=== PATIENT | female | born 1990 | race Caucasian/White ===

== ENCOUNTER 2017-03-12 17:50 | Emergency (ER) | payer OTHER ==
[~2017-03-12] VITALS: Ht 152.4 cm; Wt 97.8 kg
[~2017-03-12 17:50] MED LIST: COLACE100 MG PO; Feosol PO; Lortab,Vicodin Elixi PO; NOHOMEMEDS
[2017-03-12 18:41] LABS: HEMATOCRIT 39.1 % (36.0-46.0); MCHC 34.3 G/DL (30.0-36.0); MCV 90.5 FL (83-99); MEAN PLAT.VOLUME 10.2 uM^3 (9.5-12.4); PLATELET COUNT 234 K/uL (156-360); RBC DIS.WIDTH-CV 11.8 % (11.8-14.6); RBC DIS.WIDTH-SD 39.1 % (39-53); RED BLOOD COUNT 4.32 M/uL (3.80-5.20); WHITE BLOOD COUNT 8.4 K/uL (4.1-10.2)
[2017-03-12 18:48] LABS: CHLORIDE 106 mEq/L (99-109); POTASSIUM 3.8 mEq/L (3.7-5.4); SODIUM 138 mEq/L (136-147)
[2017-03-12 18:51] LABS: GLUCOSE 96 mg/dL (70-99)
[2017-03-12 18:52] LABS: ANION GAP 7 MEQ/L (2-14)
[2017-03-12 18:53] LABS: TOTAL BILIRUBIN 0.3 mg/dL (0.0-1.0)
[2017-03-12 18:54] LABS: ALKALINE PHOSPHATASE 55 IU/L (3-129); GFR ESTIMATE (CALCULATED) > 59 mL/min/
[2017-03-12 18:55] LABS: UREA NITROGEN (BUN) 12 mg/dL (9-23)
[2017-03-12 19:05] LABS: QUANTITATIVE HCG < 4.0 MIU/ML
[2017-03-12 19:21] LABS: LIPASE 24 U/L (1.0-51.0)
[2017-03-12 20:37] LABS: ADD MIUA? YES; BILIRUBIN NEGATIVE; BLOOD NEGATIVE; COLOR YELLOW ((YELLOW)); GLUCOSE (STRIP) NEGATIVE; KETONES NEGATIVE; LEUKOCYTES NEGATIVE; NITRITE NEGATIVE; PROTEIN (STRIP) NEGATIVE; SPECIFIC GRAVITY 1.021 (1.000-1.030); UROBILINOGEN 0.2 MG/DL (0.2-1.0)
[2017-03-12 21:13] VITALS: BP 125/88
[2017-03-12 21:56] LABS: BACTERIA RARE /HPF; EPITHELIAL CELLS 3+ /HPF; MUCUS TRACE /LPF; RED BLOOD CELLS 0-5 /HPF (0-5); UCUL ADDED? NO; WHITE BLOOD CELLS 0-5 /HPF (0-5)
== END 2017-03-12 21:13 | disposition home or self-care (01) ==
LOC: EME 17:50
DX: N83.202 Unspecified ovarian cyst, left side (principal); K59.00 Constipation, unspecified; R11.0 Nausea
CPT/HCPCS: 74000; 76856; 80053; 81003; 83690; 84702; 85027; 99281; 99283